=== PATIENT | female | born 1990 | race African-American/Black ===

== ENCOUNTER 2018-03-13 10:15 | Observation (INO) | payer MEDICAID ==
[~2018-03-13] VITALS: Ht 162.6 cm; Wt 83.0 kg
[2018-03-13] MEDS ORDERED: PREN-380 PO (10:55)
[2018-03-13] MEDS ORDERED: FOLIC ACID PO (10:55)
[2018-03-13] MEDS ORDERED: CARB200T4 PO (11:02)
[2018-03-13] MEDS ORDERED: LEVE500T9 PO (11:02)
[2018-03-13 11:13] VITALS: BP 134/76
[2018-03-13 15:05] LABS: BASOPHILS % (AUTO) 0.4 % (0.0-2.0); EOSINOPHILS # (AUTO) 0.1 K/uL (0-0.4); EOSINOPHILS % (AUTO) 0.7 % (0.0-4.0); HEMATOCRIT 38.3 % (36-48); HEMOGLOBIN 12.3 g/dL (12.0-16.0); LYMPHOCYTES # (AUTO) 1.9 K/uL (2.5-16.5); LYMPHOCYTES % (AUTO) 16.8 % (20.5-51.1); MEAN CORPUSCULAR HEMOGLOBIN 30 pg (27-31); MEAN CORPUSCULAR HGB CONC 32 g/dL (33-37); MEAN CORPUSCULAR VOLUME 93.7 fL (80-94); MONOCYTES % (AUTO) 8.9 % (1.7-9.3); NEUTROPHILS # (AUTO) 8.1 K/uL (1.8-7.7); NEUTROPHILS % (AUTO) 73.2 % (42.2-75.2); PLATELET COUNT (AUTO) 243 K/uL (140-450); RED BLOOD CELL COUNT(AUTO) 4.08 MIL/uL (4.20-5.40); RED CELL DISTRIBUTION WIDTH 14.8 % (11.6-13.7); WHITE BLOOD COUNT (AUTO) 11.1 K/uL (4.8-10.8)
[2018-03-13 15:44] LABS: ANION GAP 10.8 (8-16); CARBON DIOXIDE 25.9 mmol/L (21-32); CREATININE 0.5 mg/dL (0.6-1.3); POTASSIUM 3.7 mmol/L (3.5-5.1)
[2018-03-13 15:50] LABS: ALBUMIN 2.6 g/dL (3.4-5.0); TOTAL BILIRUBIN 0.2 mg/dL (0.0-1.0)
== END 2018-03-13 15:00 | disposition home or self-care (01) ==
LOC: MLD 10:15
PROVIDERS: ADMIT Obstetrics & Gynecology; ATTEND Obstetrics & Gynecology
DX: O99.353 Diseases of the nervous system complicating pregnancy, third trimester (principal); G40.909 Epilepsy, unspecified, not intractable, without status epilepticus; O26.893 Other specified pregnancy related conditions, third trimester; R10.9 Unspecified abdominal pain; Z3A.38 38 weeks gestation of pregnancy
CPT/HCPCS: 36415; 76805; 80053; 80156; 80173; 85025; 86592; 86703; 86762; 86886; 86900; 86901; 87653; G0378; Q0092; 81000

== ENCOUNTER 2018-03-17 07:09 | Inpatient (IN) | payer MEDICAID ==
[2018-03-17] VITALS (13 sets, daily range): BP systolic 110–144; BP diastolic 51–88
[~2018-03-17] VITALS: Ht 162.6 cm; Wt 81.6 kg
[~2018-03-17 07:09] MED LIST: CARB200T4 PO; FOLIC ACID PO; LEVE500T9 PO; PREN-380 PO
[2018-03-17] MEDS ORDERED: METOCLOPRAMIDE 10 MG/2 ML INJ VIAL IVP ONE (07:45)
[2018-03-17] MEDS ORDERED: LACTATED RINGERS 1,000 ML IV SCH (08:15)
[2018-03-17] MEDS ORDERED: CITRIC ACID/SODIUM CITRATE 30 ML UDC PO SCH (08:30)
[2018-03-17] MEDS ORDERED: MORPHINE PRES FREE 2 MG/2 ML 2 mL UD SYRINGE ONE (09:33)
[2018-03-17] MEDS ORDERED: fentaNYL 0.05 MG/ML VIAL ONE (09:33)
[2018-03-17 09:43] LABS: BASOPHILS % (AUTO) 0.4 % (0.0-2.0); EOSINOPHILS # (AUTO) 0.1 K/uL (0-0.4); EOSINOPHILS % (AUTO) 0.7 % (0.0-4.0); HEMOGLOBIN 11.9 g/dL (12.0-16.0); LYMPHOCYTES # (AUTO) 1.9 K/uL (2.5-16.5); LYMPHOCYTES % (AUTO) 16.7 % (20.5-51.1); MEAN CORPUSCULAR HEMOGLOBIN 30 pg (27-31); MEAN CORPUSCULAR HGB CONC 32 g/dL (33-37); MEAN CORPUSCULAR VOLUME 93.6 fL (80-94); MONOCYTES # (AUTO) 1.1 K/uL (0.8-1.0); MONOCYTES % (AUTO) 9.5 % (1.7-9.3); NEUTROPHILS # (AUTO) 8.4 K/uL (1.8-7.7); NEUTROPHILS % (AUTO) 72.7 % (42.2-75.2); PLATELET COUNT (AUTO) 239 K/uL (140-450); RED BLOOD CELL COUNT(AUTO) 3.95 MIL/uL (4.20-5.40); RED CELL DISTRIBUTION WIDTH 14.3 % (11.6-13.7); WHITE BLOOD COUNT (AUTO) 11.5 K/uL (4.8-10.8)
[2018-03-17 09:46] LABS: APPEARANCE,URINE CLEAR (CLEAR); BILIRUBIN,URINE NEGATIVE (NEGATIVE); BLOOD, URINE NEGATIVE (NEGATIVE); COLOR,URINE YELLOW (YELLOW); LEUKOCYTE ESTERASE ,URINE NEGATIVE (NEGATIVE); NITRITE, URINE NEGATIVE (NEGATIVE); UGLUCOSE NEGATIVE (NEGATIVE)
[2018-03-17] MEDS ORDERED: BUPIVACAINE-MPF 0.75% 10 ML VIAL INJ ONE (10:19)
[2018-03-17] MEDS ORDERED: KETOROLAC 60 MG/2 ML VIAL IM PRN (10:50)
[2018-03-17] MEDS ORDERED: ONDANSETRON 4 MG/2 ML VIAL IVP PRN ×2 (10:50)
[2018-03-17] MEDS ORDERED: diphenhydrAMINE 50 MG/ML VIAL IVP PRN (10:50)
[2018-03-17] MEDS ORDERED: NALBUPHINE 10 MG/ML AMP IVP PRN (10:50)
[2018-03-17] MEDS ORDERED: NALOXONE 0.4 MG/ML VIAL IVP PRN ×3 (10:50)
[2018-03-17] MEDS ORDERED: OXYTOCIN 20 UNITS/LR PREMIX 1,000 ML IV ONE (12:58)
[2018-03-17] MEDS ORDERED: MEASLES, MUMPS, AND RUBELLA 1 VIAL SQVAC PRN (13:40)
[2018-03-17] MEDS ORDERED: KETOROLAC 30 MG/ML VIAL IVP PRN (13:40)
[2018-03-17] MEDS ORDERED: HYDROmorphone 1 MG/ML AMP IVP PRN (13:40)
[2018-03-17] MEDS ORDERED: LORazepam 2 MG/ML VIAL IVP PRN (14:00)
[2018-03-17] MEDS: OXYTOCIN 20 UNITS in LACTATED RINGERS 1,000 ML IV SCH ×3 (14:09→23:35)
[2018-03-17] MEDS ORDERED: carBAMazepine 200 MG TAB PO SCH (14:30)
[2018-03-17] MEDS ORDERED: levETIRAcetam 1,000 MG in NACL 0.9% 100 ML IV SCH (16:30)
[2018-03-18] VITALS: BP 130/74
[2018-03-18 02:00] VITALS: BP 133/81
[2018-03-18 04:00] VITALS: BP 131/73
[2018-03-18 06:00] VITALS: BP 144/84
[2018-03-18 08:00] VITALS: BP 123/82
[2018-03-18] MEDS ORDERED: carBAMazepine 200 MG TAB PO SCH ×5 (08:00→15:00)
[2018-03-18 08:28] LABS: BASOPHILS # (AUTO) 0.1 K/uL (0.00-0.22); BASOPHILS % (AUTO) 0.4 % (0.0-2.0); EOSINOPHILS % (AUTO) 0.2 % (0.0-4.0); HEMATOCRIT 33.9 % (36-48); HEMOGLOBIN 11.1 g/dL (12.0-16.0); LYMPHOCYTES # (AUTO) 1.3 K/uL (2.5-16.5); LYMPHOCYTES % (AUTO) 7.7 % (20.5-51.1); MEAN CORPUSCULAR HEMOGLOBIN 31 pg (27-31); MEAN CORPUSCULAR HGB CONC 33 g/dL (33-37); MEAN CORPUSCULAR VOLUME 93.2 fL (80-94); MONOCYTES # (AUTO) 1.4 K/uL (0.8-1.0); NEUTROPHILS # (AUTO) 14.3 K/uL (1.8-7.7); NEUTROPHILS % (AUTO) 83.7 % (42.2-75.2); PLATELET COUNT (AUTO) 219 K/uL (140-450); RED BLOOD CELL COUNT(AUTO) 3.64 MIL/uL (4.20-5.40); RED CELL DISTRIBUTION WIDTH 14.6 % (11.6-13.7); WHITE BLOOD COUNT (AUTO) 17.1 K/uL (4.8-10.8)
[2018-03-18] MEDS: levETIRAcetam 500 MG TAB PO SCH ×2 (10:35→21:04)
[2018-03-18] MEDS ORDERED: levETIRAcetam 500 MG TAB PO SCH (21:00)
[2018-03-18] MEDS: carBAMazepine 200 MG TAB PO SCH (21:05)
[2018-03-18] MEDS ORDERED: ACETAMINOPHEN 325 MG TAB PO PRN (22:00)
[2018-03-19] MEDS: carBAMazepine 200 MG TAB PO SCH ×3 (05:02→21:08)
[2018-03-19] MEDS ORDERED: SODIUM PHOSPHATE 118 ML ENEM RC PRN (08:00)
[2018-03-19] MEDS: DOCUSATE SODIUM 100 MG GELCAP PO SCH (08:45)
[2018-03-19] MEDS: SIMETHICONE 80 MG TAB.CHEW PO SCH (08:45)
[2018-03-19] MEDS: levETIRAcetam 500 MG TAB PO SCH ×2 (08:46→21:07)
[2018-03-19] MEDS: IBUPROFEN 600 MG TAB PO PRN ×2 (08:46→21:06)
[2018-03-19] MEDS: LABETALOL 100 MG TAB PO SCH (21:03)
[2018-03-20] MEDS: BISACODYL 5 MG TABEC PO PRN (08:49)
[2018-03-20] MEDS: DOCUSATE SODIUM 100 MG GELCAP PO SCH (08:49)
[2018-03-20] MEDS: LABETALOL 100 MG TAB PO SCH ×2 (08:50→20:54)
[2018-03-20] MEDS: levETIRAcetam 500 MG TAB PO SCH ×2 (08:50→20:54)
[2018-03-20] MEDS: carBAMazepine 200 MG TAB PO SCH ×2 (08:51→17:11)
[2018-03-20] MEDS: SIMETHICONE 80 MG TAB.CHEW PO SCH (17:10)
[2018-03-20] MEDS: IBUPROFEN 600 MG TAB PO PRN (20:54)
[2018-03-21] MEDS: SIMETHICONE 80 MG TAB.CHEW PO SCH ×3 (00:53→13:14)
[2018-03-21] MEDS: carBAMazepine 200 MG TAB PO SCH ×2 (00:54→08:10)
[2018-03-21] MEDS: DOCUSATE SODIUM 100 MG GELCAP PO SCH (08:11)
[2018-03-21] MEDS: LABETALOL 100 MG TAB PO SCH (09:16)
[2018-03-21] MEDS: BISACODYL 5 MG TABEC PO PRN (09:17)
[2018-03-21] MEDS: levETIRAcetam 500 MG TAB PO SCH (09:55)
[2018-03-21] MEDS: IBUPROFEN 600 MG TAB PO PRN (13:14)
== END 2018-03-21 15:50 | disposition home or self-care (01) | DRG 540 ==
LOC: MLD 07:09 → MIC 13:11 → MFCC 03-18 11:45
PROVIDERS: ADMIT Obstetrics & Gynecology; ATTEND Obstetrics & Gynecology
PROC: 0UB90ZZ Excision of Uterus, Open Approach (ICD-10-PCS; 2018-03-17)
PROC: 10D00Z1 Extraction of Products of Conception, Low, Open Approach (ICD-10-PCS; principal; 2018-03-17 09:30)
DX: O34.13 Maternal care for benign tumor of corpus uteri, third trimester (principal); O99.354 Diseases of the nervous system complicating childbirth; Z37.0 Single live birth; O69.81X0 Labor and delivery complicated by cord around neck, without compression, not applicable or unspecified; Z3A.40 40 weeks gestation of pregnancy; D25.9 Leiomyoma of uterus, unspecified; G40.909 Epilepsy, unspecified, not intractable, without status epilepticus; Z83.3 Family history of diabetes mellitus; Z82.49 Family history of ischemic heart disease and other diseases of the circulatory system
CPT/HCPCS: 36415; 80156; 80173; 81003; 85025; 86592; 86886; 86900; 86901; 87081; 88305; 90715; J0690; J1885; J1953; J2270; J2590; J3010; J3490; J7030; J7060; J7120